=== PATIENT | female | born 1965 | race Caucasian/White ===

== ENCOUNTER → 2016-08-22 | Outpatient (CLI) | payer OTHER ==
--- NOTE | 2016-09-06 14:26 | XR ---
EXAMINATION TYPE: XR elbow complete RT DATE OF EXAM: 08/22/2016 2:16 PM COMPARISON: NONE HISTORY: Right elbow pain TECHNIQUE: 3 views right elbow FINDINGS: Radius aligns normally with the humerus. Anterior fat pad is normal. No elevation of typewriter mechanic ior fat pad is evident. IMPRESSION: 1. Normal three-view right elbow. Follow-up studies can be performed 7-10 days from acute trauma for continued pain.
== END | disposition home or self-care (01) ==
LOC: RADXRMAIN 13:51
PROVIDERS: ATTEND Family Medicine
DX: M25.521 Pain in right elbow (principal)

== ENCOUNTER 2017-05-18 18:21 | Emergency (ER) | payer OTHER ==
[2017-05-18 18:36] VITALS: BP 117/59; PULSE 107; RESP 18; TEMP 97.6
--- NOTE | 2017-05-18 20:16 | ED ---
Upper Extremity HPI - General Chief Complaint: Extremity Injury, Lower Stated Complaint: Shoulder Pain Time Seen by Provider: 05/18/17 18:44 Source: patient Mode of arrival: ambulatory Limitations: no limitations - History of Present Illness Initial Comments: Patient is a 52-year-old female presenting to the emergency department with chief complaint of left shoulder pain that started when she woke up this morning. Complaint: Injury to:: left Onset/Timin -: days(s) Other Injuries: none Handedness: right Place: home Severity scale (1-10): 8 Improves With: immobilization Worsens With: movement of extremity Context: other (Patient woke up with pain) Associated Symptoms: denies other symptoms Treatments Prior to Arrival: NSAIDS - Related Data Home Medications Medication Instructions Recorded Confirmed Atorvastatin [Lipitor] 20 mg PO DAILY 06/04/14 05/18/17 Gemfibrozil [Lopid] 600 mg PO AC-BID 06/04/14 05/18/17 metFORMIN HCL 1,000 mg PO BID 06/04/14 05/18/17 ALPRAZolam [Xanax] 0.5 mg PO TID 05/18/17 05/18/17 Ibuprofen [Motrin] 200 mg PO Q6HR PRN 05/18/17 05/18/17 Allergies Allergy/AdvReac Type Severity Reaction Status Date / Time amoxicillin Allergy Itching Verified 05/18/17 19:01 clindamycin Allergy Itching Verified 05/18/17 19:01 Penicillins Allergy Itching Verified 05/18/17 19:01 sulfamethoxazole Allergy Itching Verified 05/18/17 19:01 [From Bactrim] trimethoprim [From Bactrim] Allergy Itching Verified 05/18/17 19:01 Review of Systems ROS Statement: Those systems with pertinent positive or pertinent negative responses have been documented in the HPI. ROS Other: All systems not noted in ROS Statement are negative. Past Medical History Past Medical History: COPD, Diabetes Mellitus History of Any Multi-Drug Resistant Organisms: None Reported Past Surgical History: Hysterectomy Additional Past Surgical History / Comment(s): NECK MASS RESECTION - 2 MONTHS OLD Past Psychological History: No Psychological Hx Reported Smoking Status: Current every day smoker Past Alcohol Use History: None Reported Past Drug Use History: None Reported General Exam - General Exam Comments Initial Comments: GENERAL: Pt awake and alert, well-appearing, well-nourished, and in no acute distress. HEAD: Atraumatic, normocephalic. EYES: Pupils equal, round, and reactive to light, extraocular movements intact, sclera anicteric, conjunctiva are normal. ENT: Moist mucous membranes. No carotid bruits. Thyroid midline, small and firm without palpable masses. LUNGS: Breath sounds clear to auscultation bilaterally. No wheezes, rales, or rhonchi. HEART: Heart S1, S2, no S3 or S4. Regular rate and rhythm. No murmurs, rubs or gallops. ABDOMEN: Soft, nontender, nondistended, normoactive bowel sounds. No guarding, no rebound. No masses or organomegaly appreciated. MUSCULOSKELETAL: Left shoulder: Decreased range of motion with flexion and extension abduction and abduction. Patient is able to lift left upper extremity approximately 45 without pain. EXTREMITIES: 2+ peripheral pulses. No edema. NEUROLOGICAL: Pt oriented x 3. Cranial nerves II through XII grossly intact. Sensation grossly intact. Decreased strength to left upper extremity. PSYCH: Normal mood, normal affect. SKIN: Warm, dry, intact. Normal turgor. Limitations: no limitations Course Vital Signs 05/18/17 18:34 Temperature 97.6 F Pulse Rate 107 H Respiratory 18 Rate Blood Pressure 117/59 O2 Sat by Pulse 93 L Oximetry Medical Decision Making - Medical Decision Making Left shoulder pain. X-ray left shoulder negative for acute fracture dislocation. Patient provided with a sling and instructed to continue NSAIDs. Patient instructed to [facility] for possible [facility]. Patient instructed to return to the emergency department for any new or worsening symptoms. Patient agrees with treatment plan. Discharge instructions and return parameters reviewed. Disposition Clinical Impression: Left shoulder pain Disposition: HOME SELF-CARE Condition: Good Instructions: Shoulder Pain (ED) Additional Instructions: Avoid activity that causes pain Ice 20 minutes 4 times a day usually for 2-3 days Use sling for support but sparingly. Keep arm elevated as much as possible 24-48 hours. Continue motrin for pain and discomfor. Return to the emergency department with symptoms of increased swelling, pain, numbness, tingling, or hand feeling cold to touch. Follow-up with primary service and orthopedic service as directed. Referrals: Augustine Gutierrez MD [Primary Care Provider] - 1-2 days Ruben Thayer MD [STAFF PHYSICIAN] - 1-2 days Time of Disposition: 20:30
--- NOTE | 2017-05-18 20:21 | XR ---
EXAMINATION TYPE: XR shoulder complete LT DATE OF EXAM: 05/18/2017 COMPARISON: NONE HISTORY: Pain TECHNIQUE: Shoulder examined in 3 projections FINDINGS: The humeral head articulates with the glenoid. The acromio-clavicular junction is normal. No acute fractures or dislocations are evident. A follow up study can be performed 7-10 days from acute trauma for continued pain. IMPRESSION: 1. Normal left Shoulder
== END 2017-05-18 20:40 | disposition home or self-care (01) ==
LOC: EC 18:21
DX: M25.512 Pain in left shoulder (principal); E11.9 Type 2 diabetes mellitus without complications; F17.200 Nicotine dependence, unspecified, uncomplicated; Z88.0 Allergy status to penicillin; Z88.1 Allergy status to other antibiotic agents; Z79.84 Long term (current) use of oral hypoglycemic drugs; Z79.899 Other long term (current) drug therapy
CPT/HCPCS: 99283

== ENCOUNTER → 2017-08-19 | Outpatient (CLI) | payer OTHER ==
--- NOTE | 2017-08-19 17:27 | XR ---
EXAMINATION TYPE: XR shoulder complete LT DATE OF EXAM: 08/19/2017 COMPARISON: 05/18/2017 HISTORY: Shoulder pain TECHNIQUE: 3 views FINDINGS: I see no fracture nor dislocation. Joint spaces are normal. There are no pathologic calcifi cations. IMPRESSION: Negative left shoulder exam. No change.
== END | disposition home or self-care (01) ==
LOC: RADXRMAIN 17:03
PROVIDERS: ATTEND Family Medicine
DX: M25.512 Pain in left shoulder (principal)

== ENCOUNTER → 2017-09-24 | Outpatient (CLI) | payer OTHER ==
--- NOTE | 2017-09-24 20:47 | MR ---
EXAMINATION TYPE: MR shoulder LT wo con DATE OF EXAM: 09/24/2017 COMPARISON: NONE HISTORY: Left shoulder pain TECHNIQUE: Multiplanar, multisequence imaging of the left shoulder is performed without contrast. FINDINGS: Rotator Cuff: There is increased intrasubstance signal involving the distal margin of the supraspinat us tendon compatible tendinosis and partial intrasubstance tear no definite through thickness tear. N o retraction. Remaining rotator cuff tendons appear intact. Acromioclavicular Joint: Hypertrophic changes seen there is mass effect and impingement upon the supr aspinatus tendon and muscle. Glenohumeral Joint: Joint spaces preserved. There is poor visualization the inferior glenohumeral lig ament. Partial tear not excluded. Labrum: Findings are suggestive of a SLAP tear Biceps Tendon: The long head of biceps is in normal location within bicipital groove. There is increa sed fluid surrounding the tendon compatible tendinosis. No evidence of tear or retraction. Bone marrow signal: No focal abnormal marrow signal is appreciated. IMPRESSION: 1. Impingement secondary to AC joint arthropathy with findings compatible with a segmental area of in creased signal and thickening of the supraspinatus tendon near the insertion compatible with tendinos is and partial intrasubstance tear without evidence of retraction. 2. SLAP tear. 3. Bicipital tendinosis. 4. There is poor definition of the inferior glenohumeral ligament. Could not exclude a partial tear c orrelate clinically.
== END | disposition home or self-care (01) ==
LOC: RADMRIMAIN 19:40
PROVIDERS: ATTEND Family Medicine
DX: S43.402A Unspecified sprain of left shoulder joint, initial encounter (principal); M25.812 Other specified joint disorders, left shoulder; M12.812 Other specific arthropathies, not elsewhere classified, left shoulder; M75.22 Bicipital tendinitis, left shoulder

== ENCOUNTER 2017-10-08 20:30 | Emergency (ER) | payer OTHER ==
[2017-10-08] MEDS ORDERED: ACETAMINOPHEN TAB 500 MG TAB PO STA (20:40)
--- NOTE | 2017-10-08 21:09 | XR ---
EXAMINATION: XR chest 2V DATE AND TIME: 10/08/2017 9:04 PM ORDERING PROVIDER: Sai Cameron DO CLINICAL INDICATION: cough and fever and nausea TECHNIQUE: PA and lateral COMPARISON: 06/25/2012 DESCRIPTION: The lungs are clear. The pleural spaces are negative. The cardiac silhouette is not enlarged. The mediastinal and pleural silhouettes are unremarkable. The skeletal structures are intact without focal findings. The soft tissues are unremarkable. IMPRESSION: NO ACUTE PROCESS.
--- NOTE | 2017-10-08 21:27 | ED ---
URI HPI - General Chief Complaint: Upper Respiratory Infection Stated Complaint: Fever, Low back pain Time Seen by Provider: 10/08/17 20:45 Source: patient Mode of arrival: ambulatory Limitations: no limitations - History of Present Illness Initial Comments: [age] female presenting for evaluation of fevers and cough since yesterday. She states that she has progressively been having worsening symptoms over the last 24 hours and there is associated arthralgias, myalgias, and generalized fatigue. She states the cough is nonproductive and that a T- max prior to arrival was 102F. She denies any chest pain or shortness of breath, abdominal pain, nausea or vomiting, dysuria, or rashes. There is no associated pain with movement of her neck, vision changes, lightheadedness or dizziness. She is not been taking any medications for improvement in her symptoms and denies any exacerbating factors. - Related Data Home Medications Medication Instructions Recorded Confirmed Gemfibrozil [Lopid] 600 mg PO AC-BID 06/04/14 10/08/17 metFORMIN HCL 1,000 mg PO BID 06/04/14 10/08/17 ALPRAZolam [Xanax] 0.5 mg PO TID PRN 05/18/17 10/08/17 Previous Rx's Medication Instructions Recorded Ibuprofen [Motrin] 800 mg PO Q6HR #30 tab 10/08/17 Allergies Allergy/AdvReac Type Severity Reaction Status Date / Time amoxicillin Allergy Itching Verified 10/08/17 20:40 clindamycin Allergy Itching Verified 10/08/17 20:40 Penicillins Allergy Itching Verified 10/08/17 20:40 sulfamethoxazole Allergy Itching Verified 10/08/17 20:40 [From Bactrim] trimethoprim [From Bactrim] Allergy Itching Verified 10/08/17 20:40 Review of Systems ROS Statement: Those systems with pertinent positive or pertinent negative responses have been documented in the HPI. ROS Other: All systems not noted in ROS Statement are negative. Constitutional: Reports: fever, chills Eyes: Denies: eye pain, eye discharge, vision change ENT: Denies: ear pain, throat pain Respiratory: Reports: cough. Denies: wheezes, hemoptysis Cardiovascular: Denies: chest pain, palpitations, dyspnea on exertion, syncope Endocrine: Reports: fatigue. Denies: polydipsia, polyuria Gastrointestinal: Denies: abdominal pain, nausea, vomiting, diarrhea, constipation Genitourinary: Denies: urgency, dysuria Musculoskeletal: Reports: back pain, arthralgia, myalgia Skin: Denies: rash, lesions Neurological: Denies: headache, weakness Psychiatric: Denies: anxiety, depression Hematological/Lymphatic: Denies: easy bleeding, easy bruising Past Medical History Past Medical History: COPD, Diabetes Mellitus History of Any Multi-Drug Resistant Organisms: None Reported Past Surgical History: Hysterectomy Additional Past Surgical History / Comment(s): NECK MASS RESECTION - 2 MONTHS OLD Past Psychological History: No Psychological Hx Reported Smoking Status: Current every day smoker Past Alcohol Use History: None Reported Past Drug Use History: None Reported General Exam Limitations: no limitations General appearance: alert, in no apparent distress Head exam: Present: atraumatic, normocephalic Eye exam: Present: normal appearance, PERRL ENT exam: Present: normal exam, normal oropharynx Neck exam: Present: normal inspection. Absent: tenderness, meningismus, lymphadenopathy Respiratory exam: Present: normal lung sounds bilaterally. Absent: respiratory distress, wheezes, rales, rhonchi, stridor Cardiovascular Exam: Present: normal rhythm, tachycardia GI/Abdominal exam: Present: soft, normal bowel sounds. Absent: distended, tenderness, guarding, rebound, rigid Rectal exam: Present: deferred Extremities exam: Present: normal inspection, full ROM, normal capillary refill. Absent: tenderness, pedal edema, joint swelling, calf tenderness Back exam: Present: normal inspection Neurological exam: Present: alert, oriented X3, CN II-XII intact Psychiatric exam: Present: normal affect, normal mood Skin exam: Present: warm, dry, intact, normal color. Absent: rash Course Vital Signs 10/08/17 20:32 Temperature 101.4 F H Pulse Rate 106 H Respiratory 20 Rate Blood Pressure 135/81 O2 Sat by Pulse 97 Oximetry Medical Decision Making - Medical Decision Making 52-year-old female presenting for evaluation of cough, fevers, chills , myalgias, arthralgias, generalized fatigue. Physical examination she appears to be in no apparent distress however vitals show that she is febrile with a mild tachycardia. Lungs are clear to auscultation bilaterally and the remainder of her physical exam is benign. Labs reveal that she is in fluids a positive and chest shows no pneumonia. Patient was informed of all these results and offered a prescription with Tamiflu however after being informed of the side effects profile and the efficacy the patient requested that she not be given the prescription that she would not like to take it. She was advised follow-up with primary care physician but given strict return instructions. The patient acknowledged an understanding of all information provided and agreed with this plan of care. - Lab Data Lab Results 10/08/17 Range/Units 20:41 Influenza Type A RNA Detected H (Not Detectd) Influenza Type B (PCR) Not Detected (Not Detectd) Disposition Clinical Impression: Influenza A Disposition: HOME SELF-CARE Condition: Stable Instructions: Upper Respiratory Infection (ED) Additional Instructions: Please use medication as discussed. Please follow up with family doctor if symptoms have not improved over the next two days. Please return to the emergency room if your symptoms increase or worsen or for any other concerns. Prescriptions: Ibuprofen [Motrin] 800 mg PO Q6HR #30 tab Referrals: Augustine Gutierrez MD [Primary Care Provider] - 1-2 days Time of Disposition: 21:26
[2017-10-08 22:07] VITALS: BP 118/64; PULSE 97; RESP 18; TEMP 98.7
== END 2017-10-08 21:47 | disposition home or self-care (01) ==
LOC: EC 20:30
DX: J10.1 Influenza due to other identified influenza virus with other respiratory manifestations (principal); E11.9 Type 2 diabetes mellitus without complications; F17.200 Nicotine dependence, unspecified, uncomplicated; Z79.84 Long term (current) use of oral hypoglycemic drugs; Z79.899 Other long term (current) drug therapy; Z88.0 Allergy status to penicillin; Z88.2 Allergy status to sulfonamides; Z88.1 Allergy status to other antibiotic agents
CPT/HCPCS: 71046; 87502; 99283

== ENCOUNTER → 2018-01-05 | Outpatient (CLI) | payer OTHER ==
[2018-01-05 10:12] LABS: Basophils % (A) 1 %; Eosinophils # (A) 0.3 k/uL (0-0.7); Eosinophils % (A) 5 %; HGB 12.8 gm/dL (11.4-16.0); Lymphocytes # (A) 2.2 k/uL (1.0-4.8); Lymphocytes % (A) 39 %; MCH 30.8 pg (25.0-35.0); MCHC 33.8 g/dL (31.0-37.0); MCV 91.1 fL (80.0-100.0); Mean Platelet Volume 6.5; Monocytes # (A) 0.3 k/uL (0-1.0); Monocytes % (A) 6 %; Neutrophils # (A) 2.7 k/uL (1.3-7.7); Neutrophils % (A) 48 %; Platelet Count 328 k/uL (150-450); RBC 4.17 m/uL (3.80-5.40); RDW 12.8 % (11.5-15.5); WBC 5.6 k/uL (3.8-10.6)
[2018-01-05 10:23] LABS: Potassium 4.5 mmol/L (3.5-5.1)
== END | disposition home or self-care (01) ==
LOC: LABPAT 09:31
PROVIDERS: ATTEND Orthopaedic Surgery
DX: Z01.812 Encounter for preprocedural laboratory examination (principal); M75.42 Impingement syndrome of left shoulder
CPT/HCPCS: 36415; 80051; 85025; 93005

== ENCOUNTER 2018-01-28 05:33 | Day surgery (SDC) | payer OTHER ==
[2018-01-22 11:10] VITALS: BMI 24.7
--- NOTE | 2018-01-27 15:14 | HP ---
HISTORY AND PHYSICAL REASON FOR ADMISSION: Surgery scheduled for 01/28/2018 HISTORY OF PRESENT ILLNESS: Melissa Hayden is a 52-year-old patient seen with progressive left shoulder pain. We discussed treatment options. She elected to proceed with arthroscopy. Consent was obtained. PAST MEDICAL HISTORY: [id number] diabetes. PAST SURGICAL HISTORY: Hysterectomy. MEDICATIONS: Metformin. ALLERGIES: PENICILLIN, AMOXICILLIN, BACTRIM. SOCIAL HISTORY: Patient currently smokes cigarettes. PHYSICAL EXAMINATION: Physical evaluation of the left shoulder, flexion 30 degrees, abduction 30 degrees, external rotation is -20 degrees. Tenderness along the anterolateral acromion rotator cuff insertion site. Impingement sign positive at 50 degrees. Drop-arm sign positive. Distal neurovascular exam intact. RADIOGRAPHS: Radiographs of the left shoulder revealed a type 2 anterior acromion, evidence for acromioclavicular joint osteoarthritis. Left shoulder MRI revealed impingement along with a partial rotator cuff tendon tear. IMPRESSION: 1. Left shoulder impingement with rotator cuff tear. 2. Adhesive capsulitis, left shoulder. 3. Left shoulder acromioclavicular joint osteoarthritis. PLAN: Left shoulder arthroscopy with subacromial decompression, probable arthroscopic rotator cuff repair, possible [place] procedure and debridement. Surgery scheduled 01/28/2018, left shoulder. MMODL / IJN: [id number] /
[~2018-01-28 05:33] MED LIST: HYDROmorphone 0.5 MG/0.5 ML SYRINGE IVP PRN; LACTATED RINGERS 1,000 ML IV SCH; ONDANSETRON 4 MG/2 ML VIAL IVP PRN; SCOPOLAMINE 1.5MG/72HR PATCH TRANSDERM ONE; ceFAZolin 1,000 MG in DEXTROSE/WATER 1 50ML.BAG IV ONE; fentaNYL (PF) 50 MCG/ML 2 ML AMP IV PRN
[2018-01-28] MEDS ORDERED: HYDROmorphone 0.5 MG/0.5 ML SYRINGE IVP PRN (05:58)
[2018-01-28] MEDS ORDERED: SCOPOLAMINE 1.5MG/72HR PATCH TRANSDERM ONE (05:58)
[2018-01-28] MEDS ORDERED: fentaNYL (PF) 50 MCG/ML 2 ML AMP IV PRN (05:58)
[2018-01-28] MEDS ORDERED: ONDANSETRON 4 MG/2 ML VIAL IVP PRN (05:58)
[2018-01-28] MEDS ORDERED: LACTATED RINGERS 1,000 ML IV SCH (05:58)
[2018-01-28] MEDS ORDERED: LIDOCAINE 1% 20 ML VIAL (10MG/ML) FOR IV START INTRADERMA ONE (06:38)
[2018-01-28 06:57] LABS: Glucose,Whole Blood 166 mg/dL (75-99)
[2018-01-28] MEDS ORDERED: MIDAZOLAM 2 MG/2 ML VIAL ONE (07:28)
[2018-01-28] MEDS ORDERED: SUCCINYLCHOLINE CHLORIDE 100 MG/5 ML SYR IV ONE (07:28)
[2018-01-28] MEDS ORDERED: PROPOFOL 10 MG/ML 20 ML VIAL IV ONE (07:28)
[2018-01-28] MEDS ORDERED: fentaNYL (PF) 50 MCG/ML 2 ML AMP ONE (07:28)
[2018-01-28] MEDS ORDERED: LIDOCAINE 1% INJ 10MG/ML (20 ML MDV) ONE (07:28)
[2018-01-28] MEDS ORDERED: SODIUM CHLORIDE 0.9% 50 ML with ceFAZolin 1,000 MG IV ONE ×2 (07:45)
[2018-01-28] MEDS ORDERED: BUPIVACAINE (PF) 0.5% 30 ML VIAL SQ ONE (07:58)
[2018-01-28 09:23] VITALS: TEMP 97
--- NOTE | 2018-01-28 09:29 | P.OP ---
Date of Procedure: 01/28/18 Preoperative Diagnosis: Left shoulder impingement Postoperative Diagnosis: 1. Left shoulder rotator cuff tear 2. Left shoulder impingement 3. Left shoulder partial biceps tendon tear 4. Left shoulder anterior labral tear Procedure(s) Performed: 1. Left shoulder arthroscopic rotator cuff repair 2. Left shoulder arthroscopic subacromial decompression 3. Left shoulder arthroscopic biceps tenotomy 4. Left shoulder arthroscopic debridement labral tear Implants: 15.5 Arthrex swivel lock anchor Anesthesia: SILVINO, local Surgeon: iMna [facility]ist #1: Scott Jansen Estimated Blood Loss (ml): 10 Pathology: none sent Condition: stable Disposition: PACU Indications for Procedure: 52-year-old patient seen with progressive left shoulder pain. After treatment options were discussed she elected to proceed with arthroscopy. Operative Findings: See description of procedure Description of Procedure: The patient was taken to the operative suite. The patient underwent a general anesthetic by the department of anesthesia. The patient was placed into a lateral position and secured. There was appropriate padding of the bony prominence. Left shoulder was then prepped and draped in normal sterile orthopedic fashion. We placed the extremity in 10 pounds of longitudinal traction. A posterior incision was now made for a posterior working portal site. The trocar and cannula were inserted into the glenohumeral joint. Arthroscopy was initiated. Spinal needle was now inserted anteriorly, to ascertain the anterior working portal site. An incision was now made in that area, a trocar was inserted followed by a probe. There was superficial tearing of the anterior labrum present. There was partial tearing and hyperemia biceps tendon. There were mild grade 1 chondromalacia changes of the glenoid fossa. The posterior, superior and inferior labrum were intact. I performed an arthroscopic biceps tenotomy. I debrided the superficial labral tears down to stable tissue. The residual labrum was stable. Instruments now removed from the glenohumeral joint. Utilizing the posterior working portal site, the trocar and cannula were inserted into the subacromial space. Arthroscopy initiated. I made an incision 2 fingerbreadths lateral to the acromion. I introduced my trocar followed by my ArthroCare ablator. I now began ablating thick subacromial bursal tissue, which exposed the undersurface of the anterior acromion. This was diminished subacromial space. There was a very prominent anterior acromion. A motorized bur was introduced and a subacromial decompression was performed. I also excised some osteophytes off the inferior aspect of the distal clavicle. The AC joint was visualized and noted to be mildly arthritic. I did not think enough to warrant a [place] procedure. I turned my attention to the rotator cuff tendon. There was some superficial tearing noted along the posterior aspect of the distal super space. Upon probing there was a full thickness perforation. I now took a motorized shaver and I debrided those margins down to stable tissue. I to approximately 1 cm defect. I abraded the footprint with a motorized bur. I passed 2 everted mattress sutures through good bites of rotator cuff tendon. I now repaired the tendon with one single 5.5 Arthrex anchor compressing the tendon along the footprint very nicely. Residual suture limbs were clipped. The repair was stable. I injected 1 mL Renue intra- articular. Instruments now removed from the portal sites. All portal sites were approximated with nylon suture. The subacromial space was infiltrated with 20 mL 0.5 percent plain Marcaine. Sterile dressings were applied followed by a shoulder immobilizer. Austin HERNANDES assisted with the procedure. The patient was awakened, transferred to a bed, and taken to recovery in stable condition.
[2018-01-28 10:44] VITALS: RESP 18
[2018-01-28] MEDS ORDERED: HYDROcodone/APAP 7.5-325MG 1 EACH TAB PO ONE (10:54)
[2018-01-28 10:57] LABS: Glucose,Whole Blood 208 mg/dL (75-99)
[2018-01-28 11:33] VITALS: PULSE 94
[2018-01-28 11:35] VITALS: BP 128/70
== END 2018-01-28 12:10 | disposition home or self-care (01) ==
LOC: OR 05:33
PROVIDERS: ATTEND Orthopaedic Surgery
DX: M75.102 Unspecified rotator cuff tear or rupture of left shoulder, not specified as traumatic (principal); M75.42 Impingement syndrome of left shoulder; M94.212 Chondromalacia, left shoulder; S43.492A Other sprain of left shoulder joint, initial encounter; S46.112A Strain of muscle, fascia and tendon of long head of biceps, left arm, initial encounter; M19.012 Primary osteoarthritis, left shoulder; M25.712 Osteophyte, left shoulder; E11.9 Type 2 diabetes mellitus without complications; F17.210 Nicotine dependence, cigarettes, uncomplicated; J44.9 Chronic obstructive pulmonary disease, unspecified; M75.02 Adhesive capsulitis of left shoulder; Z88.0 Allergy status to penicillin; Z88.2 Allergy status to sulfonamides; Z79.84 Long term (current) use of oral hypoglycemic drugs; Z88.1 Allergy status to other antibiotic agents; Z79.899 Other long term (current) drug therapy
CPT/HCPCS: 29827; 29823; C1713; C1765; J2250; J2405; J2001; J3010; J0690; J0330; J2704

== ENCOUNTER 2018-07-07 16:38 | Emergency (ER) | payer OTHER ==
[2018-07-07 16:44] VITALS: BP 125/77; TEMP 98
--- NOTE | 2018-07-07 18:06 | ED ---
General Adult HPI - General Chief complaint: Fall Stated complaint: Fell off deck Time Seen by Provider: 07/07/18 17:30 Source: patient, family, RN notes reviewed Mode of arrival: wheelchair - History of Present Illness Initial comments: 53-year-old female with a past medical history of diabetes, hyperlipidemia, COPD presents to the emergency determine for a chief of fall. Patient states she tripped while walking across her deck and fell onto her left knee. She states her knee is not painful at this time but there is a small abrasion. Patient states her left great toe is most painful. Patient states she is supposed to have surgery on her shoulder next week and is concerned because it is painful. However she states this pain has been consistent over the past few months. She denies any new pain in the left shoulder but states she would like to have it "checked out" before her surgery. She did not hit her head or lose consciousness. No back pain. No other injuries.Patient has no other complaints at this time including shortness of breath, chest pain, abdominal pain, nausea or vomiting, headache, or visual changes. - Related Data Home Medications Medication Instructions Recorded Confirmed metFORMIN HCL 1,000 mg PO BID 06/04/14 07/03/18 Albuterol Inhaler [Ventolin Hfa 1 puff INHALATION Q6H PRN 07/03/18 07/03/18 Inhaler] Diabetic Pill (Unknown Name) 4 mg PO HS 07/03/18 07/03/18 Ondansetron [Zofran] 4 mg PO DAILY 07/03/18 07/03/18 Allergies Allergy/AdvReac Type Severity Reaction Status Date / Time amoxicillin Allergy Itching Verified 07/07/18 16:43 clindamycin Allergy Itching Verified 07/07/18 16:43 Penicillins Allergy Itching Verified 07/07/18 16:43 sulfamethoxazole Allergy Itching Verified 07/07/18 16:43 [From Bactrim] trimethoprim [From Bactrim] Allergy Itching Verified 07/07/18 16:43 Review of Systems ROS Statement: Those systems with pertinent positive or pertinent negative responses have been documented in the HPI. ROS Other: All systems not noted in ROS Statement are negative. Past Medical History Past Medical History: COPD, Diabetes Mellitus, Hyperlipidemia Additional Past Medical History / Comment(s): "Elevated liver enzymes." History of Any Multi-Drug Resistant Organisms: None Reported Past Surgical History: Hysterectomy Additional Past Surgical History / Comment(s): NECK MASS RESECTION - 2 MONTHS OLD. Left rotator cuff repair Past Anesthesia/Blood Transfusion Reactions: No Reported Reaction Past Psychological History: No Psychological Hx Reported Smoking Status: Current every day smoker Past Alcohol Use History: None Reported Past Drug Use History: None Reported - Past Family History Mother Family Medical History: Cancer Daughter(s) Family Medical History: Cancer Additional Family Medical History / Comment(s): brain cancer General Exam - General Exam Comments Initial Comments: Left foot: Tenderness noted to the left great toe, no tenderness elsewhere in the foot. No erythema, ecchymosis, edema noted. Neurovascular intact with a capillary refill less than 2 seconds and AP pulse 2+. Patient does have full range of motion of digits and left foot as well as intact sensation. General appearance: alert, in no apparent distress Head exam: Present: atraumatic, normocephalic, normal inspection Eye exam: Present: normal appearance, PERRL, EOMI. Absent: scleral icterus, conjunctival injection, periorbital swelling ENT exam: Present: normal exam, mucous membranes moist Neck exam: Present: normal inspection, full ROM. Absent: tenderness, meningismus, lymphadenopathy Respiratory exam: Present: normal lung sounds bilaterally. Absent: respiratory distress, wheezes, rales, rhonchi, stridor Cardiovascular Exam: Present: regular rate, normal rhythm, normal heart sounds. Absent: systolic murmur, diastolic murmur, rubs, gallop, clicks Extremities exam: Present: tenderness (Minimal tenderness noted to left shoulder which patient states is chronic), normal capillary refill (Capillary refill less than 2 seconds and radial pulse 2+ in the left upper extremity.), other (Sensation intact the left upper extremity. Exam). Absent: full ROM ( Patient has 5 of flexion and abduction of the left shoulder which she states is chronic. Full range motion of the left elbow and left wrist), joint swelling (No significant edema noted in the left shoulder) Back exam: Absent: vertebral tenderness Neurological exam: Present: alert, oriented X3, CN II-XII intact Psychiatric exam: Present: normal affect, normal mood Course Vital Signs 07/07/18 16:41 Temperature 98.0 F Pulse Rate 115 H Respiratory 18 Rate Blood Pressure 125/77 O2 Sat by Pulse 99 Oximetry Medical Decision Making - Medical Decision Making Vitals within acceptable limits. Patient is well-appearing. She does have some limited range of motion of the left shoulder X-ray of the left shoulder shows a negative exam. She has tenderness in the left great toe, no erythema or ecchymosis noted. X-ray of the left foot shows no acute abnormality. Image and report were both reviewed. Neurovascular intact in both the left shoulder and left foot. Patient will be given a fracture shoe as she does have tenderness noted in the left great toe with pain with ambulation. She has an appointment with Dr. Wilson in the following week and will follow-up with him. She will return if she has any worsening symptoms. Disposition Clinical Impression: Toe pain, Chronic shoulder pain Disposition: HOME SELF-CARE Condition: Good Instructions: Toe Fracture (ED), Shoulder Pain (ED) Additional Instructions: Please use fracture shoe. Please follow-up with orthopedics in one to 2 days. Return to the emergency department if you have any worsening symptoms. Is patient prescribed a controlled substance at d/c from ED?: No Referrals: Mina Wilson DO [Doctor of Osteopathic Medicine] - 1-2 days Time of Disposition: 19:07
--- NOTE | 2018-07-07 18:45 | XR ---
EXAMINATION TYPE: XR shoulder complete LT DATE OF EXAM: 07/07/2018 COMPARISON: 08/19/2017 HISTORY: Fall. Pain TECHNIQUE: 3 views FINDINGS: I see no fracture nor dislocation. Joint spaces are normal. There are no pathologic calcifi cations. IMPRESSION: Negative left shoulder exam. No change.
--- NOTE | 2018-07-07 18:46 | XR ---
EXAMINATION TYPE: XR foot complete LT DATE OF EXAM: 07/07/2018 COMPARISON: NONE HISTORY: Fall. Foot pain TECHNIQUE: 3 views FINDINGS: There is plantar calcaneal spurring. Metatarsals appear intact. I see no fracture nor dislo cation. The joint spaces are fairly normal. IMPRESSION: No acute abnormality of the left foot.
[2018-07-07] MEDS ORDERED: DIPH,PERTUS(ACELL)TETVAC-LF 0.5 ML VIAL IM ONE (18:51)
[2018-07-07 19:19] VITALS: PULSE 90; RESP 16
== END 2018-07-07 19:18 | disposition home or self-care (01) ==
LOC: EC 16:38
DX: G89.29 Other chronic pain (principal); M79.675 Pain in left toe(s); M25.512 Pain in left shoulder; E11.9 Type 2 diabetes mellitus without complications; J44.9 Chronic obstructive pulmonary disease, unspecified; F17.200 Nicotine dependence, unspecified, uncomplicated; Z79.84 Long term (current) use of oral hypoglycemic drugs; Z79.899 Other long term (current) drug therapy; Z88.0 Allergy status to penicillin; Z88.1 Allergy status to other antibiotic agents; Z88.2 Allergy status to sulfonamides; Z53.8 Procedure and treatment not carried out for other reasons; W01.0XXA Fall on same level from slipping, tripping and stumbling without subsequent striking against object, initial encounter; Y93.01 Activity, walking, marching and hiking
CPT/HCPCS: 99283

== ENCOUNTER 2018-07-13 10:00 | Day surgery (SDC) | payer OTHER ==
[2018-07-03 09:29] VITALS: BMI 25.8
--- NOTE | 2018-07-12 14:52 | HP ---
HISTORY AND PHYSICAL Melissa Hayden is 53-year-old patient seen with persistent left shoulder adhesive capsulitis. We discussed options. She elected to proceed with manipulation under anesthesia, left shoulder steroid injection. Consent was obtained. PAST MEDICAL HISTORY: [id number] diabetes. PAST SURGICAL HISTORY: Hysterectomy, left shoulder arthroscopy. MEDICATIONS: Metformin. ALLERGIES: PENICILLIN, AMOXICILLIN, BACTRIM. SOCIAL HISTORY: Patient currently smokes cigarettes. PHYSICAL EXAMINATION: Physical evaluation of the left shoulder flexion 80 degrees, abduction 60 degrees, external rotation is 10 degrees. She has well-healed arthroscopic portal sites. The distal neurovascular exam is intact. Left shoulder radiographs revealed stable conversion to a flat anterior acromion. IMPRESSION: 1. Left shoulder adhesive capsulitis. 2. History of left shoulder arthroscopy. 3. [id number] diabetes. PLAN: Manipulation under anesthesia left shoulder with steroid injection. Surgery scheduled for 07/13/2018. MMODL / IJN: [id number] /
[2018-07-13 09:10] VITALS: TEMP 98.6
[2018-07-13 09:32] LABS: Glucose,Whole Blood 128 mg/dL (75-99)
--- NOTE | 2018-07-13 09:56 | P.OP ---
Date of Procedure: 07/13/18 Preoperative Diagnosis: Left shoulder adhesive capsulitis Postoperative Diagnosis: Same Procedure(s) Performed: Manipulation under anesthesia left shoulder with steroid injection Anesthesia: MAC Surgeon: Mina Wilson Estimated Blood Loss (ml): 0 Pathology: none sent Condition: stable Disposition: PACU Indications for Procedure: 53-year-old patient seen with persistent left shoulder adhesive capsulitis. After treatment options were discussed, she elected to proceed with manipulation under anesthesia along with steroid injection. Operative Findings: see description of procedure Description of Procedure: The patient was taken to a monitored anesthesia area. Patient underwent IV sedation by the department of anesthesia. Once sufficient anesthesia was noted I performed a manipulation of the left shoulder achieving 170 of flexion, 170 of abduction and adequate rotation. The anterior aspect of the shoulder was now prepped and draped in the normal sterile orthopedic fashion. I injected 1 mL Depo-Medrol and 2 mL Marcaine intra-articular. A sterile Band-Aid was applied. The shoulder was again taken through a range of motion. The patient was awakened having tolerated the procedure well.
[~2018-07-13 10:00] MED LIST changes: -HYDROmorphone 0.5 MG/0.5 ML SYRINGE IVP PRN; +HYDROmorphone 1 MG/ML 1 ML SYRINGE IVP ONE; +KETOROLAC 30 MG/ML 1 ML VIAL IVP ONE; +LIDOCAINE 1% 20 ML VIAL (10MG/ML) FOR IV START INTRADERMA PRN; +LIDOCAINE 1% INJ 10MG/ML (20 ML MDV) ONE; -ONDANSETRON 4 MG/2 ML VIAL IVP PRN; +PROPOFOL 10 MG/ML 20 ML VIAL IV ONE; -SCOPOLAMINE 1.5MG/72HR PATCH TRANSDERM ONE; -fentaNYL (PF) 50 MCG/ML 2 ML AMP IV PRN
[2018-07-13 10:09] VITALS: RESP 16
[2018-07-13 10:57] VITALS: BP 119/68; PULSE 89
== END 2018-07-13 12:30 | disposition home or self-care (01) ==
LOC: OR 10:00
PROVIDERS: ATTEND Orthopaedic Surgery
DX: M75.02 Adhesive capsulitis of left shoulder (principal); E11.9 Type 2 diabetes mellitus without complications; Z79.84 Long term (current) use of oral hypoglycemic drugs; F17.210 Nicotine dependence, cigarettes, uncomplicated; J44.9 Chronic obstructive pulmonary disease, unspecified; Z99.81 Dependence on supplemental oxygen; Z79.899 Other long term (current) drug therapy; Z88.0 Allergy status to penicillin; Z88.2 Allergy status to sulfonamides
CPT/HCPCS: 23700; J2001; J1885; J1170; J2704